=== PATIENT | male | born 1960 | race Caucasian/White ===

== ENCOUNTER 2017-04-02 14:13 | Emergency (ER) | payer OTHER ==
[2017-04-02 14:59] VITALS: BP 149/82
[2017-04-02] MEDS ORDERED: Ibuprofen 600 MG Tab PO ONE (15:08)
--- NOTE | 2017-04-02 15:15 | EDM.PDOC ---
ED HPI GENERAL MEDICAL PROBLEM - General Chief Complaint: Lower Extremity Injury/Pain Stated Complaint: NAIL THROUGH RT FOOT Time Seen by Provider: 04/02/17 15:00 Source of Information: Reports: Patient History Limitations: Reports: No Limitations - History of Present Illness INITIAL COMMENTS - FREE TEXT/NARRATIVE: Micha is a 56 year old male who presents to the ED today after stepping on a rust nail with his right foot. Patient pulled out entire nail. Patient has been ambulating on foot, arrives here with large amounts of blood to bottom of right foot, denies any injuries, states last DT was last year. - Related Data Allergies Allergy/AdvReac Type Severity Reaction Status Date / Time Penicillins Allergy Anaphylactic Verified 01/02/16 17:02 Shock Home Meds: Home Meds Clindamycin HCl [Clindamycin HCl] 04/02/17 [History] oxyCODONE HCl/Acetaminophen [oxyCODONE-Acetaminophen 5-325] 04/02/17 [History] Past Medical History - Past Surgical History HEENT Surgical History: Reports: Myringotomy w Tube(s) Musculoskeletal Surgical History: Reports: Arthroscopic Knee Social & Family History - Tobacco Use Smoking Status *Q: Current Every Day Smoker Years of Tobacco use: 35 Packs/Tins Daily: 2 Review of Systems - Review of Systems Review Of Systems: ROS reveals no pertinent complaints other than HPI. ED EXAM, GENERAL - Physical Exam Exam: See Below Exam Limited By: No Limitations General Appearance: Alert, WD/WN, No Apparent Distress Respiratory/Chest: No Respiratory Distress Cardiovascular: Regular Rate, Rhythm Peripheral Pulses: 2+: Posterior Tibial (L), Posterior Tibial (R) Extremities: Normal Capillary Refill, Other (tender to medial plantar region where nail punctured) Neurological: Alert, Oriented Psychiatric: Normal Affect, Normal Mood Skin Exam: Other (small 1 mm puncture wound to plantar aspect of right foot, just proximal to medial metatarsal region) Course - Vital Signs Last Recorded V/S: Last Vital Signs Temp 36.4 C 04/02/17 15:16 Pulse 100 04/02/17 15:16 Resp 20 04/02/17 15:16 BP 149/82 H 04/02/17 15:16 Pulse Ox 96 04/02/17 15:16 Micha is a 56 year old male whose DT is up to date who presents to the ED today after stepping on a nail with his right foot. Please refer to HPI and focused exam. Patient has no obvious deformity on exam. Foot was well irrigated and soaked by nursing staff with NS and [place]. X-ray obtained to rule any acute osseous involvement and is negative. Bacitracin and dressing applied to foot. I will start patient on Keflex for infection prophylaxis. He just finished a course of Clindamycin for dental infection. I strongly recommended Culturelle, a probiotic while on the Kelfex to prevent GI upset and diarrhea. Wound care discussed as well as reasons to return to the ED. Patient agreeable and discharged in stable condition. - Orders/Labs/Meds Orders: Active Orders 24 hr Category Date Time Status Foot Comp Min 3V Rt [CR] Stat Exams 04/02/17 15:09 Taken Meds: Medications Discontinued Medications Generic Name Dose Route Start Last Admin Trade Name Freq PRN Reason Stop Dose Admin Bacitracin 1 dose 04/02/17 16:22 Bacitracin Oint 1 Gm TOP 04/02/17 16:23 ONETIME ONE Ibuprofen 600 mg 04/02/17 15:08 Motrin PO 04/02/17 15:09 ONETIME ONE Departure - Departure Time of Disposition: 16:45 Disposition: Home, Self-Care 01 Condition: Good Clinical Impression: Puncture wound of foot Qualifiers: Encounter type: initial encounter Laterality: right Qualified Code(s): S91.331A - Puncture wound without foreign body, right foot, initial encounter - Discharge Information Instructions: Puncture Wound, [id number] Referrals: Logan Cheatham MD [Primary Care Provider] - Forms: ED Department Discharge Additional Instructions: Keep wound clean and dry Apply bacitracin twice daily to entry site for 3 days Take Keflex as prescribed Start a probiotic (Culturelle) twice daily until done with antibiotics - My Orders Last 24 Hours: My Active Orders 04/02/17 15:09 Foot Comp Min 3V Rt [CR] Stat - Assessment/Plan Last 24 Hours: My Active Orders 04/02/17 15:09 Foot Comp Min 3V Rt [CR] Stat
[2017-04-02] MEDS ORDERED: Bacitracin Oint 1 GM U/D Packet TOP ONE (16:22)
--- NOTE | 2017-04-03 09:14 | CR ---
Foot Comp Min 3V Rt HISTORY: Stepped on nail COMPARISON: None FINDINGS:There is normal alignment. There are no posttraumatic findings. There are no significant de generative changes. No evidence of fracture, dislocation, or arthritic or inflammatory change. The s oft tissues are unremarkable. There is no radiopaque foreign body. IMPRESSION: Negative exam of the foot.
== END 2017-04-02 17:00 | disposition home or self-care (01) ==
LOC: JP.ED 14:13
DX: S91.331A Puncture wound without foreign body, right foot, initial encounter (principal); Z88.0 Allergy status to penicillin; Z96.22 Myringotomy tube(s) status; F17.210 Nicotine dependence, cigarettes, uncomplicated; W45.0XXA Nail entering through skin, initial encounter
CPT/HCPCS: 73630; 99284; A9270

== ENCOUNTER 2017-05-29 06:30 | Day surgery (SDC) | payer OTHER ==
[2017-05-29] MEDS ORDERED: Lactated Ringers 1,000 ML IV SCH (07:00)
[2017-05-29] MEDS ORDERED: Propofol 200 MG/20 ML SDV ONE (07:39)
[2017-05-29] MEDS ORDERED: Midazolam 1 MG/ML 2 ML SDV ONE (07:40)
[2017-05-29] MEDS ORDERED: fentaNYL 100 MCG/2 ML SDV ONE (07:40)
[2017-05-29 09:00] VITALS: BP 119/63
--- NOTE | 2017-05-29 10:41 | OR ---
DATE OF PROCEDURE: 05/29/2017 PREOPERATIVE DIAGNOSIS: Colon cancer screening. POSTOPERATIVE DIAGNOSIS: Diverticulosis; two polyps, one large and one moderate. PROCEDURE PERFORMED: Colonoscopy to the cecum with snare cautery polypectomy x1 and biopsy followed by snare cautery polypectomy x1. SURGEON: Jean Ricketts MD. ANESTHESIA: IV anesthesia with monitored anesthesia care. INDICATION: This 56-year-old white male is referred for a colonoscopy for colon cancer screening. He has never had a colonoscopic exam. I counseled him for the procedure, including risks and alternatives, and he gave his informed consent to proceed. DESCRIPTION OF PROCEDURE: The patient was placed in the left lateral decubitus position. IV anesthesia was administered by the Anesthesia Service. Time-out was held. A rectal exam was performed, which was unremarkable. The flexible video Olympus colonoscope was introduced through his anus, up his rectum, and out his colon all the way to the cecum. En route, we saw several left-sided diverticula. There was no bleeding or inflammation associated with them. Once the cecum was reached, the scope was slowly withdrawn, examining the mucosa throughout. No additional mucosal abnormalities were noted until we reached 30 cm from the anal verge. Here, we saw a fairly large pedunculated polyp. The snare was passed about its base, it was elevated up away from the bowel wall and amputated as electrocautery was applied. The polyp was aspirated onto the end of the scope with the scope removed and the polyp then retrieved from the end of the scope. The scope was reintroduced back into the colon to about 30 cm and then slowly withdrawn, examining the remainder of the colon. At 15 cm, a smaller polyp was seen. This was initially biopsied. It was too large to remove using this technique and the snare was passed about its base. It was elevated up away from the bowel wall and amputated as electrocautery was applied. It was aspirated up through the scope and captured in a polyp trap. The scope was brought back and retroflexed in the rectum. The distal rectum appeared unremarkable. The scope was straightened and removed. He tolerated the procedure well. Jean Ricketts MD /[id number] [facility]
== END 2017-05-29 09:12 | disposition home or self-care (01) ==
LOC: JP.SDS 06:30
PROVIDERS: ATTEND Surgery
DX: Z12.11 Encounter for screening for malignant neoplasm of colon (principal); D12.6 Benign neoplasm of colon, unspecified; K57.30 Diverticulosis of large intestine without perforation or abscess without bleeding; G47.33 Obstructive sleep apnea (adult) (pediatric); F17.200 Nicotine dependence, unspecified, uncomplicated; Z88.0 Allergy status to penicillin; Z98.890 Other specified postprocedural states
CPT/HCPCS: 45380; 45385; 88305; J2250; J2704; J3010; J7120